=== PATIENT | male | born 1995 ===

== ENCOUNTER 2017-10-01 17:10 | Emergency (ER) | payer BC ==
[2017-10-01 17:20] VITALS: BP 125/65; PULSE 75; RESP 16; TEMP 98.8; O2SAT 100
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
== END 2017-10-01 19:14 | disposition home or self-care (01) ==
LOC: H.ER 17:10
DX: S01.311A Laceration without foreign body of right ear, initial encounter (principal); Y04.0XXA Assault by unarmed brawl or fight, initial encounter; Y92.89 Other specified places as the place of occurrence of the external cause